=== PATIENT | female | born 1990 | race Caucasian/White ===

== ENCOUNTER → 2021-09-10 | Outpatient (CLI) | payer OTHER ==
[~2021-09-10] MED LIST: GLUCOPHAGE500 MG PO; NORCO 5-325 TA1 EACH PO
== END ==
LOC: RAD 16:27
DX: R05.9 Cough, unspecified (principal); R06.02 Shortness of breath
CPT/HCPCS: 71046

== ENCOUNTER 2021-09-22 15:40 | Emergency (ER) | payer OTHER ==
[2021-09-22 16:20] LABS: HEMOGLOBIN 14.1 gm/dl (12.3-15.3); RED BLOOD COUNT 4.59 M/UL (4.00-5.10); WHITE BLOOD COUNT 8.4 K/UL (4.5-11.0)
[2021-09-22 16:43] LABS: BUN/CREATININE RATIO 16 (0-10)
[2021-09-22] MEDS ORDERED: OMNICEF 300 MG300 MG PO (19:54)
== END 2021-09-22 20:40 | disposition home or self-care (01) ==
LOC: ER1 15:40
PROVIDERS: Physician Assistant
DX: J16.8 Pneumonia due to other specified infectious organisms (principal); F17.200 Nicotine dependence, unspecified, uncomplicated; Z88.0 Allergy status to penicillin; Z20.822 Contact with and (suspected) exposure to COVID-19
CPT/HCPCS: 80053; 82550; 82553; 83874; 84484; 84703; 85025; 93005; 96374; 96375; 99285; J0696; J1100; Q9967; U0002

== ENCOUNTER 2022-03-09 16:56 | Emergency (ER) | payer OTHER ==
[~2022-03-09 16:56] MED LIST changes: +OMNICEF 300 MG300 MG PO
[2022-03-09 19:34] LABS: HEMOGLOBIN 14.9 gm/dl (12.3-15.3); RED BLOOD COUNT 4.77 M/UL (4.00-5.10)
[2022-03-09 20:03] LABS: BUN/CREATININE RATIO 15 (0-10)
[2022-03-09] MEDS ORDERED: CYCLOBENZAPRINE10 MG PO (22:03)
[2022-03-09] MEDS ORDERED: IBUPROFEN800 MG PO (22:03)
== END 2022-03-09 22:20 | disposition home or self-care (01) ==
LOC: ER1 16:56
PROVIDERS: Emergency Medicine
DX: S13.4XXA Sprain of ligaments of cervical spine, initial encounter (principal); S30.1XXA Contusion of abdominal wall, initial encounter; S50.12XA Contusion of left forearm, initial encounter; Z88.0 Allergy status to penicillin; F17.200 Nicotine dependence, unspecified, uncomplicated; V49.9XXA Car occupant (driver) (passenger) injured in unspecified traffic accident, initial encounter; W22.10XA Striking against or struck by unspecified automobile airbag, initial encounter; Y92.410 Unspecified street and highway as the place of occurrence of the external cause
CPT/HCPCS: 70450; 72125; 73090; 80053; 84703; 85025; 96374; 96375; 99284; J2270; J2405; Q9967